=== PATIENT | male | born 1965 | race Caucasian/White ===

== ENCOUNTER 2017-12-20 18:03 | Emergency (ER) | payer OTHER ==
[2017-12-20] MEDS ORDERED: diphenhydrAMINE 25 MG CAPSULE PO STA (18:24)
[2017-12-20] MEDS ORDERED: predniSONE 20 MG TABLET PO STA (18:24)
--- NOTE | 2017-12-20 18:43 | ED Physician Documentation ---
History of Present Illness - Stated complaint Stated Complaint: ALLERGIC REACTION - Chief complaint Chief Complaint: Allergic Rx - History obtained from History obtained from: Patient, Family - History of Present Illness Timing: How many hours ago (1) Pain level max: 0 Pain level now: 0 - Additonal information Additional information: [facility], when he arrived home, he felt itchy and broke out in a generalized rash. No dyspnea or wheezing. Review of Systems Ten Systems: 10 systems reviewed and negative Constitutional: denies: Fever, Chills Ears: denies: Ear pain Nose: denies: Rhinorrhea / runny nose, Congestion Throat: denies: Sore throat Cardiac: denies: Chest pain / pressure Respiratory: reports: Wheezing. denies: Cough GI: denies: Abdominal Pain, Nausea, Vomiting, Diarrhea Musculoskeletal: denies: Neck pain, Back pain Neurologic: denies: Headache PD PAST MEDICAL HISTORY - Past Medical History Past Medical History: No - Past Surgical History Past Surgical History: No - Present Medications Home Medications: Ambulatory Orders Medication Instructions Recorded Confirmed predniSONE [Prednisone] 40 mg PO DAILY #10 tablet 12/20/17 - Allergies Allergies/Adverse Reactions: Allergies Allergy/AdvReac Type Severity Reaction Status Date / Time No Known Drug Allergies Allergy Verified 05/30/16 19:27 - Social History Does the pt smoke?: No Smoking Status: Never smoker Does the pt drink ETOH?: Yes - Immunizations Immunizations are current?: Yes PD ED PE NORMAL - Vitals Vital signs reviewed: Yes - General General: Alert and oriented X 3, No acute distress, Well developed/nourished - HEENT HEENT: PERRL, Moist mucous membranes, Pharynx benign - Neck Neck: Supple, no meningeal sign - Cardiac Cardiac: RRR, Strong equal pulses - Respiratory Respiratory: No respiratory distress, Clear bilaterally - Abdomen Abdomen: Soft, Non tender, Non distended - Derm Derm: Warm and dry, Other (diffuse urticaria, blanches easily.) - Extremities Extremities: No edema - Neuro Neuro: Alert and oriented X 3 - Psych Psych: Normal mood, Normal affect Results - Vitals Vitals: Vital Signs - 24 hr 12/20/17 12/20/17 12/20/17 18:17 19:45 20:14 Temperature 36.8 C Heart Rate 100 80 77 Respiratory 18 15 15 Rate Blood Pressure 157/97 H 122/92 H 116/88 H O2 Saturation 96 91 L 98 Oxygen O2 Source Room air PD MEDICAL DECISION MAKING - ED course Complexity details: re-evaluated patient, considered differential, d/w patient ED course: Patient is a 52-year-old gentleman who presents to the emergency department with diffuse urticaria. Unclear etiology, possible shellfish allergy? Given prednisone and Benadryl. No anaphylaxis. No wheezing. No stridor. Symptoms resolved in the emergency department. Will place on steroids for home and follow-up with his doctor. Patient and family counseled regarding signs and symptoms for which I believe and urgent re-evaluation would be necessary. Patient with good understanding of and agreement to plan and is comfortable going home at this time This document was made in part using voice recognition software. While efforts are made to proofread this document, sound alike and grammatical errors may occur. Departure - Departure Disposition: 01 Home, Self Care Clinical Impression: Allergic reaction Qualifiers: Encounter type: initial encounter Qualified Code(s): T78.40XA - Allergy, unspecified, initial encounter Condition: Good Instructions: ED Allergic Reaction General Other Follow-Up: Romy Elliott MD [Primary Care Provider] - Within 1 week Prescriptions: predniSONE [Prednisone] 40 mg PO DAILY #10 tablet Comments: Return if you worsen. Continue the prednisone as prescribed. You can also take Benadryl at home as needed for itching. I would avoid any shellfish until you have been allergy tested. Discharge Date/Time: 12/20/17 20:18
[2017-12-20 20:15] VITALS: BP 116/88
== END 2017-12-20 20:18 | disposition home or self-care (01) ==
LOC: ED 18:03
DX: T78.40XA Allergy, unspecified, initial encounter (principal); X58.XXXA Exposure to other specified factors, initial encounter
CPT/HCPCS: 99283; A9270; J7512

== ENCOUNTER 2020-08-09 16:44 | Emergency (ER) | payer OTHER ==
--- NOTE | 2020-08-09 17:19 | ED Physician Documentation ---
PD HPI UPPER EXT INJURY - Stated complaint Stated Complaint: RT FINGER LAC - Chief complaint Chief Complaint: Laceration - History obtained from History obtained from: Patient (Cut the tip off of his right finger with a mandolin slicer at home just prior to arrival. Tetanus is up-to-date.) Review of Systems Constitutional: reports: Reviewed and negative Eyes: reports: Reviewed and negative Ears: reports: Reviewed and negative PD PAST MEDICAL HISTORY - Past Surgical History Past Surgical History: No - Present Medications Home Medications: Ambulatory Orders Medication Instructions Recorded Confirmed Allopurinol [Zyloprim] 300 mg PO 08/09/20 Bacitracin Zinc Oint 1 applic TOP BID #1 tube 08/09/20 Zolpidem [Ambien] 5 mg PO HS 08/09/20 08/09/20 - Allergies Allergies/Adverse Reactions: Allergies Allergy/AdvReac Type Severity Reaction Status Date / Time mussels Allergy Anaphylaxis Verified 08/09/20 16:52 - Social History Does the pt smoke?: No Smoking Status: Never smoker Does the pt drink ETOH?: Yes - Immunizations Immunizations are current?: Yes PD ED PE NORMAL - Vitals Vital signs reviewed: Yes - General General: Alert and oriented X 3, No acute distress - Extremities Extremities: Other (Right middle finger has a less than 1 cm tip amputation that does not involve the nail or bone.) - Neuro Neuro: Alert and oriented X 3, Normal speech - Psych Psych: Normal mood, Normal affect Results - Vitals Vitals: Vital Signs - 24 hr 08/09/20 08/09/20 16:49 17:41 Temperature 36.4 C L Heart Rate 98 74 Respiratory 18 14 Rate Blood Pressure 125/73 128/78 O2 Saturation 98 99 Oxygen O2 Source Room air PD MEDICAL DECISION MAKING - ED course ED course: The wound was cleansed and dressed with Gelfoam and tube gauze and there was no further bleeding. Departure - Departure Disposition: 01 Home, Self Care Clinical Impression: Traumatic amputation of fingertip Qualifiers: Encounter type: initial encounter Qualified Code(s): S68.119A - Complete traumatic metacarpophalangeal amputation of unspecified finger, initial encou nter Condition: Good Record reviewed to determine appropriate education?: Yes Instructions: ED Laceration Amputation Finger Tip Open Tx Prescriptions: Bacitracin Zinc Oint 1 applic TOP BID #1 tube Comments: This should heal fine, keep the current dressing on until Friday, at that point you can wash it with soap and water and then apply the antibiotic ointment prescribed with a bulky dressing and the splint to keep it protected. You will need to do this I suspect for several weeks until it is fully healed. Follow-up with your doctor early next week for a wound check. Return if worsening. Discharge Date/Time: 08/09/20 17:41
[2020-08-09 17:42] VITALS: BP 128/78
== END 2020-08-09 17:41 | disposition home or self-care (01) ==
LOC: ED 16:44
DX: S68.622A Partial traumatic transphalangeal amputation of right middle finger, initial encounter (principal); W27.4XXA Contact with kitchen utensil, initial encounter; Y93.G1 Activity, food preparation and clean up; Y92.000 Kitchen of unspecified non-institutional (private) residence as the place of occurrence of the external cause
CPT/HCPCS: 99282